=== PATIENT | female | born 1935 | race Caucasian/White ===

== ENCOUNTER 2016-12-23 08:28 | Outpatient (CLI) | payer MEDICARE ==
[2016-12-23 17:35] LABS: ALBUMIN/GLOBULIN RATIO 1.3 (1.0-2.2); BILIRUBIN,TOTAL 0.8 mg/dL (0.2-1.0); BUN - BLOOD UREA NITROGEN 18 mg/dL (6-20); CALCIUM 9.7 mg/dL (8.5-10.3); CARBON DIOXIDE - CO2 28 mmol/L (21-32); CHLORIDE 100 mmol/L (101-111); CHOLESTEROL 201 mg/dL; CREATININE 0.9 mg/dL (0.4-1.0); GFR - MDRD 60 (>89); GLUCOSE 87 mg/dL (70-100); HDL CHOLESTEROL 66 mg/dL; LDL/HDL RATIO 1.7 (<4.4); POTASSIUM 4.1 mmol/L (3.5-5.0); SODIUM 139 mmol/L (135-145); TOTAL PROTEIN 7.7 g/dL (6.7-8.2); TRIGLYCERIDES 104 mg/dL; VLDL CHOLESTEROL 21 mg/dL
[2016-12-23 17:58] LABS: BASOPHILS # (AUTO) 0.1 10^3/uL (0.0-0.1); BASOPHILS % (AUTO) 0.7 %; EOSINOPHILS # (AUTO) 0.1 10^3/uL (0.0-0.7); EOSINOPHILS % (AUTO) 1.8 %; HCT - HEMATOCRIT 40.9 % (37.0-47.0); HGB - HEMOGLOBIN 13.5 g/dL (12.0-16.0); LYMPHOCYTES # (AUTO) 1.8 10^3/uL (1.5-3.5); LYMPHOCYTES % (AUTO) 23.7 %; MEAN CORPUSCULAR HEMOGLOBIN 30.4 pg (27.0-31.0); MEAN CORPUSCULAR HGB CONC 32.9 g/dL (32.0-36.0); MEAN CORPUSCULAR VOLUME 92.4 fL (81.0-99.0); MEAN PLATELET VOLUME 10.3 fL (7.9-10.8); MONOCYTES # (AUTO) 0.6 10^3/uL (0.0-1.0); NEUTROPHILS # (AUTO) 4.9 10^3/uL (1.5-6.6); NEUTROPHILS % (AUTO) 65.8 %; NUCLEATED RED BLOOD CELLS AUTO 0.2 /100WBC; RED BLOOD COUNT 4.43 10^6/uL (4.20-5.40); RED CELL DISTRIBUTION WIDTH 12.9 % (12.0-15.0); UNCORRECTED WHITE BLOOD COUNT 7.4 x10^3/uL; WHITE BLOOD COUNT 7.4 x10^3/uL (4.8-10.8)
[2016-12-23 19:02] LABS: PLATELET ESTIMATE, MANUAL NORMAL (130-450,000) (NORMAL); PLATELET MORPHOLOGY PLATELET CLUMPING (NORMAL); WBC MORPHOLOGY (MULTIPLE) 1+ VACUOLATION (NORMAL)
== END 2016-12-23 23:59 | disposition home or self-care (01) ==
LOC: LAB.R 08:28
PROVIDERS: ATTEND Physician Assistant Medical
DX: Z00.00 Encounter for general adult medical examination without abnormal findings (principal); K21.9 Gastro-esophageal reflux disease without esophagitis; E78.2 Mixed hyperlipidemia; Z79.899 Other long term (current) drug therapy
CPT/HCPCS: 80053; 80061; 84443; 85025

== ENCOUNTER 2018-01-15 08:00 | Outpatient (CLI) | payer MEDICARE ==
[2018-01-15 12:48] LABS: BASOPHILS # (AUTO) 0.1 10^3/uL (0.0-0.1); BASOPHILS % (AUTO) 1.2 %; EOSINOPHILS # (AUTO) 0.2 10^3/uL (0.0-0.7); EOSINOPHILS % (AUTO) 2.9 %; HGB - HEMOGLOBIN 13.2 g/dL (12.0-16.0); LYMPHOCYTES # (AUTO) 1.7 10^3/uL (1.5-3.5); LYMPHOCYTES % (AUTO) 25.7 %; MEAN CORPUSCULAR HEMOGLOBIN 31.5 pg (27.0-31.0); MEAN CORPUSCULAR HGB CONC 33.3 g/dL (32.0-36.0); MEAN CORPUSCULAR VOLUME 94.5 fL (81.0-99.0); MEAN PLATELET VOLUME 9.3 fL (7.9-10.8); MONOCYTES # (AUTO) 0.6 10^3/uL (0.0-1.0); MONOCYTES % (AUTO) 8.3 %; NEUTROPHILS # (AUTO) 4.2 10^3/uL (1.5-6.6); NEUTROPHILS % (AUTO) 61.9 %; PLT - PLATELET COUNT 204 10^3/uL (130-450); RED CELL DISTRIBUTION WIDTH 12.6 % (12.0-15.0); WHITE BLOOD COUNT 6.8 x10^3/uL (4.8-10.8)
[2018-01-15 13:19] LABS: ALBUMIN 3.9 g/dL (3.2-5.5); ALBUMIN/GLOBULIN RATIO 1.2 (1.0-2.2); ALKALINE PHOSPHATASE 65 IU/L (42-121); ALT ALANINE AMINOTRANSFERASE 21 IU/L (10-60); AST ASPARTATE AMINOTRANSFERASE 27 IU/L (10-42); BILIRUBIN,TOTAL 1.2 mg/dL (0.2-1.0); BUN - BLOOD UREA NITROGEN 17 mg/dL (6-20); CALCIUM 9.6 mg/dL (8.5-10.3); CARBON DIOXIDE - CO2 30 mmol/L (21-32); CHLORIDE 102 mmol/L (101-111); CHOL/HDL RATIO 2.6 (<4.4); CHOLESTEROL 206 mg/dL; CREATININE 0.9 mg/dL (0.4-1.0); GFR - MDRD 60 (>89); GLUCOSE 90 mg/dL (70-100); HDL CHOLESTEROL 79 mg/dL; LDL CHOLESTEROL,CALCULATED 109 mg/dL; LDL/HDL RATIO 1.4 (<4.4); SODIUM 138 mmol/L (135-145); TOTAL PROTEIN 7.2 g/dL (6.7-8.2); VLDL CHOLESTEROL 18 mg/dL
== END 2018-01-15 08:01 | disposition home or self-care (01) ==
LOC: LAB.R 08:00
PROVIDERS: ATTEND Physician Assistant Medical
DX: Z79.899 Other long term (current) drug therapy (principal); K21.9 Gastro-esophageal reflux disease without esophagitis; M15.9 Polyosteoarthritis, unspecified; E78.2 Mixed hyperlipidemia
CPT/HCPCS: 80053; 80061; 83721; 84443; 85025

== ENCOUNTER 2019-04-29 09:20 | Outpatient (CLI) | payer MEDICARE ==
[2019-04-29 09:40] LABS: BASOPHILS # (AUTO) 0.1 10^3/uL (0.0-0.1); BASOPHILS % (AUTO) 1.2 %; EOSINOPHILS # (AUTO) 0.3 10^3/uL (0.0-0.7); EOSINOPHILS % (AUTO) 3.9 %; HGB - HEMOGLOBIN 13.1 g/dL (12.0-16.0); LYMPHOCYTES # (AUTO) 1.6 10^3/uL (1.5-3.5); LYMPHOCYTES % (AUTO) 25.3 %; MEAN CORPUSCULAR HEMOGLOBIN 31.5 pg (27.0-31.0); MEAN CORPUSCULAR HGB CONC 33.3 g/dL (32.0-36.0); MEAN CORPUSCULAR VOLUME 94.5 fL (81.0-99.0); MEAN PLATELET VOLUME 9.9 fL (7.9-10.8); MONOCYTES # (AUTO) 0.6 10^3/uL (0.0-1.0); MONOCYTES % (AUTO) 9.2 %; NEUTROPHILS # (AUTO) 3.9 10^3/uL (1.5-6.6); NEUTROPHILS % (AUTO) 60.1 %; PLT - PLATELET COUNT 208 10^3/uL (130-450); RED BLOOD COUNT 4.16 10^6/uL (4.20-5.40); RED CELL DISTRIBUTION WIDTH 11.9 % (12.0-15.0); WHITE BLOOD COUNT 6.5 x10^3/uL (4.8-10.8)
[2019-04-29 09:57] LABS: ALBUMIN 4.4 g/dL (3.2-5.5); ALBUMIN/GLOBULIN RATIO 1.3 (1.0-2.2); ALKALINE PHOSPHATASE 66 IU/L (42-121); ALT ALANINE AMINOTRANSFERASE 20 IU/L (10-60); AST ASPARTATE AMINOTRANSFERASE 27 IU/L (10-42); BILIRUBIN,TOTAL 1.3 mg/dL (0.2-1.0); BUN - BLOOD UREA NITROGEN 19 mg/dL (6-20); CALCIUM 9.8 mg/dL (8.5-10.3); CARBON DIOXIDE - CO2 29 mmol/L (21-32); CHLORIDE 103 mmol/L (101-111); CHOL/HDL RATIO 3.5 (<4.4); CHOLESTEROL 235 mg/dL; CREATININE 0.9 mg/dL (0.4-1.0); GFR - MDRD 59 (>89); GLUCOSE 99 mg/dL (70-100); HDL CHOLESTEROL 68 mg/dL; LDL CHOLESTEROL,CALCULATED 147 mg/dL; LDL/HDL RATIO 2.2 (<4.4); SODIUM 141 mmol/L (135-145); TOTAL PROTEIN 7.8 g/dL (6.7-8.2); VLDL CHOLESTEROL 20 mg/dL
== END 2019-04-29 09:21 | disposition home or self-care (01) ==
LOC: LAB 09:20
PROVIDERS: ATTEND Nurse Practitioner
DX: Z79.899 Other long term (current) drug therapy (principal); M85.80 Other specified disorders of bone density and structure, unspecified site; K21.9 Gastro-esophageal reflux disease without esophagitis; I45.6 Pre-excitation syndrome
CPT/HCPCS: 36415; 80053; 80061; 83721; 84443; 85025

== ENCOUNTER 2019-10-29 08:11 | Outpatient (CLI) | payer MEDICARE ==
[2019-10-29 08:36] LABS: ALBUMIN 4.6 g/dL (3.2-5.5); ALBUMIN/GLOBULIN RATIO 1.4 (1.0-2.2); BILIRUBIN,TOTAL 1.4 mg/dL (0.2-1.0); CALCIUM 9.7 mg/dL (8.5-10.3); CREATININE 0.9 mg/dL (0.4-1.0); TOTAL PROTEIN 7.8 g/dL (6.7-8.2)
== END 2019-10-29 08:12 | disposition home or self-care (01) ==
LOC: LAB 08:11
PROVIDERS: ATTEND Nurse Practitioner
DX: E78.5 Hyperlipidemia, unspecified (principal); Z79.899 Other long term (current) drug therapy
CPT/HCPCS: 36415; 80053

== ENCOUNTER 2020-05-30 08:00 | Outpatient (CLI) | payer MEDICARE ==
[2020-05-30 18:11] LABS: BASOPHILS # (AUTO) 0.1 10^3/uL (0.0-0.1); BASOPHILS % (AUTO) 1.1 %; EOSINOPHILS # (AUTO) 0.1 10^3/uL (0.0-0.7); EOSINOPHILS % (AUTO) 1.8 %; HGB - HEMOGLOBIN 12.6 g/dL (12.0-16.0); LYMPHOCYTES # (AUTO) 1.8 10^3/uL (1.5-3.5); MEAN CORPUSCULAR HEMOGLOBIN 31.3 pg (27.0-31.0); MEAN CORPUSCULAR HGB CONC 33.1 g/dL (32.0-36.0); MEAN CORPUSCULAR VOLUME 94.5 fL (81.0-99.0); MEAN PLATELET VOLUME 11.4 fL (7.9-10.8); MONOCYTES # (AUTO) 0.4 10^3/uL (0.0-1.0); NEUTROPHILS # (AUTO) 3.1 10^3/uL (1.5-6.6); NEUTROPHILS % (AUTO) 56.9 %; PLT - PLATELET COUNT 188 10^3/uL (130-450); RED BLOOD COUNT 4.03 10^6/uL (4.20-5.40); RED CELL DISTRIBUTION WIDTH 12.1 % (12.0-15.0); WHITE BLOOD COUNT 5.5 x10^3/uL (4.8-10.8)
[2020-05-30 19:39] LABS: ALBUMIN 4.5 g/dL (3.2-5.5); ALBUMIN/GLOBULIN RATIO 1.4 (1.0-2.2); ALKALINE PHOSPHATASE 68 IU/L (42-121); ALT ALANINE AMINOTRANSFERASE 24 IU/L (10-60); AST ASPARTATE AMINOTRANSFERASE 28 IU/L (10-42); BILIRUBIN,TOTAL 1.6 mg/dL (0.2-1.0); BUN - BLOOD UREA NITROGEN 15 mg/dL (6-20); CALCIUM 9.7 mg/dL (8.5-10.3); CARBON DIOXIDE - CO2 29 mmol/L (21-32); CHLORIDE 101 mmol/L (101-111); CHOL/HDL RATIO 2.1 (<4.4); CHOLESTEROL 152 mg/dL; CREATININE 0.9 mg/dL (0.4-1.0); GLUCOSE 82 mg/dL (70-100); HDL CHOLESTEROL 74 mg/dL; LDL CHOLESTEROL,CALCULATED 61 mg/dL; LDL/HDL RATIO 0.8 (<4.4); SODIUM 140 mmol/L (135-145); TOTAL PROTEIN 7.8 g/dL (6.7-8.2); VLDL CHOLESTEROL 17 mg/dL
== END 2020-05-30 23:59 | disposition home or self-care (01) ==
LOC: LAB.WCP 08:00
PROVIDERS: ATTEND Family Medicine
DX: E78.5 Hyperlipidemia, unspecified (principal); M85.80 Other specified disorders of bone density and structure, unspecified site
CPT/HCPCS: 36415; 80053; 80061; 83721; 85025

== ENCOUNTER 2021-05-29 09:29 | Outpatient (CLI) | payer MEDICARE ==
[2021-05-29 13:18] LABS: ALBUMIN 4.5 g/dL (3.2-5.5); ALBUMIN/GLOBULIN RATIO 1.6 (1.0-2.2); ALKALINE PHOSPHATASE 73 IU/L (42-121); ALT ALANINE AMINOTRANSFERASE 23 IU/L (10-60); AST ASPARTATE AMINOTRANSFERASE 28 IU/L (10-42); BILIRUBIN,TOTAL 1.7 mg/dL (0.2-1.0); BUN - BLOOD UREA NITROGEN 16 mg/dL (6-20); CALCIUM 9.8 mg/dL (8.5-10.3); CARBON DIOXIDE - CO2 28 mmol/L (21-32); CHLORIDE 101 mmol/L (101-111); CHOL/HDL RATIO 2.1 (<4.4); CHOLESTEROL 147 mg/dL; CREATININE 0.9 mg/dL (0.4-1.0); GFR - MDRD 59 (>89); GLUCOSE 96 mg/dL (70-100); HDL CHOLESTEROL 69 mg/dL; LDL CHOLESTEROL,CALCULATED 58 mg/dL; LDL/HDL RATIO 0.8 (<4.4); SODIUM 139 mmol/L (135-145); TOTAL PROTEIN 7.4 g/dL (6.7-8.2); TRIGLYCERIDES 101 mg/dL; VLDL CHOLESTEROL 20 mg/dL
[2021-05-29 13:24] LABS: BASOPHILS # (AUTO) 0.1 10^3/uL (0.0-0.1); BASOPHILS % (AUTO) 1.4 %; EOSINOPHILS # (AUTO) 0.2 10^3/uL (0.0-0.7); HCT - HEMATOCRIT 38.1 % (37.0-47.0); HGB - HEMOGLOBIN 12.3 g/dL (12.0-16.0); LYMPHOCYTES # (AUTO) 1.6 10^3/uL (1.5-3.5); LYMPHOCYTES % (AUTO) 27.5 %; MEAN CORPUSCULAR HGB CONC 32.3 g/dL (32.0-36.0); MONOCYTES # (AUTO) 0.5 10^3/uL (0.0-1.0); MONOCYTES % (AUTO) 8.9 %; NEUTROPHILS # (AUTO) 3.3 10^3/uL (1.5-6.6); NEUTROPHILS % (AUTO) 58.8 %; PLT - PLATELET COUNT 216 10^3/uL (130-450); RED BLOOD COUNT 3.97 10^6/uL (4.20-5.40); WHITE BLOOD COUNT 5.6 x10^3/uL (4.8-10.8)
== END 2021-05-29 23:59 | disposition home or self-care (01) ==
LOC: LAB.WCP 09:29
PROVIDERS: ATTEND Family Medicine
DX: E78.5 Hyperlipidemia, unspecified (principal); Z79.899 Other long term (current) drug therapy
CPT/HCPCS: 36415; 80053; 80061; 83721; 85025

== ENCOUNTER 2021-10-02 15:16 | Outpatient (CLI) | payer MEDICARE ==
--- NOTE | 2021-10-03 02:22 | DEXA Report ---
PROCEDURE: Dexa Spine and/or Hip INDICATIONS: POST MENOPAUSAL TECHNIQUE: Dual energy x-ray absorptiometry (DXA) was performed on a Ayi Laile System. Regions measur ed are the AP Spine, femoral neck, and if needed forearm. COMPARISON: None. FINDINGS: Lumbar Spine: Bone Mineral Density L1-L4: 1.109 g/cm/cm,T score -0.6, within normal limits . L4: 1.013 g/cm/cm, T score -1.6, osteopenia. Left Hip: Bone Mineral Density 0.893 g/cm/cm,T score -0.9, lower limits of normal. Left Femoral Neck: Bone Mineral Density 0.811 g/cm/cm, T score -1.6, osteopenia. (T score greater or equal to -1.0: NORMAL) (T score from -1.1 to -2.4: OSTEOPENIA) (T score less than or equal to -2.5 to: OSTEOPOROSIS) Impression: 1. Osteopenia demonstrated in the left femoral neck and at L4. Patients with diagnosis of osteoporosis or osteopenia should have regular bone mineral density assess ment. For those eligible for Medicare, routine testing is allowed once every 2 years. Testing frequ ency can be increased for patients who have rapidly progressing disease or for those who are receivin g medical therapy to restore bone mass. Reviewed by: Michael Bangura MD on 10/03/2021 2:20 AM PDT Approved by: Michael Bangura MD on 10/03/2021 2:20 AM PDT Station ID: [id number]
== END 2021-10-02 15:17 | disposition home or self-care (01) ==
LOC: DI 15:16
PROVIDERS: ATTEND Nurse Practitioner Family
DX: Z78.0 Asymptomatic menopausal state (principal); M85.88 Other specified disorders of bone density and structure, other site

== ENCOUNTER 2022-12-08 08:05 | Outpatient (CLI) | payer MEDICARE | END 2022-12-08 23:59 | disposition critical access hospital (66) | LOC: EMS 08:05 | DX: R42 Dizziness and giddiness (principal); R47.1 Dysarthria and anarthria | CPT/HCPCS: A0425; A0429 ==

== ENCOUNTER 2022-12-08 08:21 | Observation (INO) | payer MEDICARE ==
--- NOTE | 2022-12-08 08:28 | ED Physician Documentation ---
PD HPI FOCAL NEURO - Stated complaint Stated Complaint: Stroke - History obtained from History obtained from: Patient, EMS - Additional information Additional information: 87-year-old woman with history of TIA went to bed last night around 10 PM in her usual state of health. This morning she woke up around 7 with dizziness "I feel like I am falling." It is not associated with headache but she is queasy with it. She has difficulty speaking with it. PD PAST MEDICAL HISTORY - Past Medical History Cardiovascular: Other - Present Medications Home Medications: Ambulatory Orders Medication Instructions Recorded Confirmed Aspirin 81 mg PO DAILY 09/08/19 09/08/19 Calcium Carbonate [Calcium] 600 mg PO DAILY 09/08/19 09/08/19 Cholecalciferol (Vitamin D3) 800 unit PO DAILY 09/08/19 09/08/19 [Vitamin D3] Cyanocobalamin (Vitamin B-12) 2,500 mg ORAL DAILY 09/08/19 09/08/19 [Vitamin B-12] Glucosamine Sulfate 2,000 mg PO DAILY 09/08/19 09/08/19 Multivitamin [Multiple Vitamins] 1 tab PO DAILY 09/08/19 09/08/19 Omeprazole 20 mg PO DAILY 09/08/19 09/08/19 Propranolol [Inderal] 40 mg PO DAILY 09/08/19 09/08/19 Turmeric/Turmeric Root Extract 500 mg PO DAILY 09/08/19 09/08/19 [Turmeric 500 mg Capsule] flaxseed oiL [Flaxseed Oil] 1,000 mg PO DAILY 09/08/19 09/08/19 - Allergies Allergies/Adverse Reactions: Allergies Allergy/AdvReac Type Severity Reaction Status Date / Time No Known Drug Allergies Allergy Verified 02/28/22 15:56 - Social History Does the pt smoke?: No Smoking Status: Never smoker PD ED PE NORMAL - Vitals Vital signs reviewed: Yes - General General: Alert and oriented X 3, No acute distress - HEENT HEENT: PERRL, EOMI - Neck Neck: Supple, no meningeal sign, No bony TTP - Cardiac Cardiac: RRR, No murmur - Respiratory Respiratory: No respiratory distress, Clear bilaterally - Abdomen Abdomen: Non tender - Neuro Neuro: Alert and oriented X 3, No motor deficit, No sensory deficit, Normal speech Eye Opening: Spontaneous Motor: Obeys Commands Verbal: Oriented GCS Score: 15 - Psych Psych: Normal mood, Normal affect NIHSS - Time Time: 08:28 - Level of Consciousness Level of consciousness: (0) Alert, Keenly responsive LOC Questions: (0) Answers both Q's correct LOC Commands: (0) Performs both correctly - Gaze Best Gaze: (0) Normal - Visual Visual: (0) No loss - Facial Palsy Facial Palsy: (0) Normal, symmetrical movement - Motor Arms (both separate) Motor Arm (right): (0) No drift Motor Arm (left): (0) No drift - Motor Legs (both separate) Motor Leg (right): (0) No drift Motor Leg (left): (0) No drift - Limb Ataxia Limb Ataxia: (0) Absent - Sensory Sensory: (0) Normal - Best Language Best Language: (1) [id number] - Dysarthria Dysarthria: (0) Normal - Extinction and Inattention (formally neg Extinction and inattention: (0) No abnormality - Total Score/Results Total Score/Result: 1 Results - Vitals Vitals: Vital Signs - 24 hr 12/08/22 12/08/22 08:24 09:12 Temperature 36.4 C L Heart Rate 52 L 49 L Respiratory 16 20 Rate Blood Pressure 174/68 H 116/86 H O2 Saturation 99 95 Oxygen O2 Source Room air - EKG (time done) 0841 EKG releavant findings:: EKG personally interpreted by author of this note. Relevant findings are: Rate: Rate (enter#) (52) Rhythm: NSR [place]: Normal Intervals: Prolonged VT, Other (LAFB) QRS: LVH Ischemia: Normal ST segments - Labs Labs: Laboratory Tests 12/08/22 12/08/22 12/08/22 08:50 08:50 08:50 WBC 4.8 RBC 4.06 L Hgb 12.7 Hct 38.3 MCV 94.3 MCH 31.3 H MCHC 33.2 RDW 11.9 L Plt Count 173 MPV 10.3 Neut # (Auto) 3.0 Lymph # (Auto) 1.2 L [place] # (Auto) 0.4 Eos # (Auto) 0.1 Baso # (Auto) 0.1 Absolute Nucleated RBC 0.00 Nucleated RBC % 0.0 PT 11.6 INR 1.0 Sodium 137 Potassium 3.7 Chloride 102 Carbon Dioxide 29 Anion Gap 6.0 BUN 14 Creatinine 0.7 Estimated GFR (MDRD) 79 L Glucose 103 H Calcium 9.0 Total Bilirubin 1.7 H AST 29 ALT 20 Alkaline Phosphatase 74 Total Protein 7.2 Albumin 4.1 Globulin 3.1 Albumin/Globulin Ratio 1.3 Lipase 70 H - Rads (name of study) CT Head - NAD, atrophy and chronic ischemic chgs Relevant Findings:: Final report received, EMP independent interpretation of test CTA of the head is without large vessel occlusion. Relevant Findings:: Final report received, EMP independent interpretation of test CT angiography of the neck shows some atherosclerosis of the carotid bulbs, otherwise unremarkable. Relevant Findings:: Final report received, EMP independent interpretation of test PD Medical Decision Making - ED course ED course: 87-year-old woman with strokelike symptoms, but fairly mild symptoms and findings with nothing lateralizing. The telestroke physician was consulted and also saw the patient. Given the unclear time of onset and mild disability he does not recommend tPA. He does recommend observation with MRI and aspirin. Spoke with Dr. Penaloza for same at 9 AM. Departure - Departure Disposition: ED Place in Observation Clinical Impression: Cerebrovascular accident (CVA) Qualifiers: CVA mechanism: unspecified Qualified Code(s): I63.9 - Cerebral infarction, unspecified Condition: Serious
[2022-12-08 08:56] LABS: BASOPHILS # (AUTO) 0.1 10^3/uL (0.0-0.1); BASOPHILS % (AUTO) 1.3 %; EOSINOPHILS # (AUTO) 0.1 10^3/uL (0.0-0.7); EOSINOPHILS % (AUTO) 2.9 %; HCT - HEMATOCRIT 38.3 % (37.0-47.0); HGB - HEMOGLOBIN 12.7 g/dL (12.0-16.0); LYMPHOCYTES # (AUTO) 1.2 10^3/uL (1.5-3.5); MEAN CORPUSCULAR HEMOGLOBIN 31.3 pg (27.0-31.0); MEAN CORPUSCULAR HGB CONC 33.2 g/dL (32.0-36.0); MEAN CORPUSCULAR VOLUME 94.3 fL (81.0-99.0); MEAN PLATELET VOLUME 10.3 fL (7.9-10.8); MONOCYTES # (AUTO) 0.4 10^3/uL (0.0-1.0); MONOCYTES % (AUTO) 8.6 %; PLT - PLATELET COUNT 173 10^3/uL (130-450); RED BLOOD COUNT 4.06 10^6/uL (4.20-5.40); RED CELL DISTRIBUTION WIDTH 11.9 % (12.0-15.0); WHITE BLOOD COUNT 4.8 x10^3/uL (4.8-10.8)
[2022-12-08] MEDS ORDERED: ASPIRIN CHEW 81 MG TABLET PO STA (09:01)
[2022-12-08] MEDS ORDERED: SODIUM CHLORIDE 0.9% 1,000 ML IV STA (09:01)
[2022-12-08 09:02] LABS: PT - PROTHROMBIN TIME 11.6 secs (9.9-12.6)
[2022-12-08 09:06] LABS: ALBUMIN 4.1 g/dL (3.2-5.5); ALBUMIN/GLOBULIN RATIO 1.3 (1.0-2.2); BILIRUBIN,TOTAL 1.7 mg/dL (0.2-1.0); CREATININE 0.7 mg/dL (0.4-1.0); POTASSIUM 3.7 mmol/L (3.5-5.0); TOTAL PROTEIN 7.2 g/dL (6.7-8.2)
--- NOTE | 2022-12-08 09:07 | CT Report ---
PROCEDURE: Head W/O Stroke Protocol INDICATIONS: Neuro deficit, acute, stroke suspected TECHNIQUE: Noncontrast 4.5 mm thick angled axial sections acquired from the foramen magnum to the vertex, with c oronal reformats. For radiation dose reduction, the following was used: automated exposure control, adjustment of mA and/or kV according to patient size. COMPARISON: None. FINDINGS: Image quality: Excellent. CSF spaces: Basal cisterns are patent. No extra-axial fluid collections. Ventricles are normal in size and shape. Bilateral hygromas larger on the left are unchanged compared to remote CT on . Brain: No midline shift. No intracranial masses or hemorrhage. Romero-white matter interface is n ormal. Skull and face: Calvarium and visualized facial bones are intact, without suspicious lesions. Sinuses: Visualized sinuses and mastoids are clear. IMPRESSION: 1. No acute intracranial abnormality. 2. Microvascular ischemic disease and age-related cerebral volume loss. Findings were discussed with the emergency department at 9:00 AM on 12/08/2022. This study fulfills neurological imaging criteria for inclusion or exclusion of acute stroke therapie s based on available published neurological imaging guidelines. Reviewed by: Nikhil Ocampo on 12/08/2022 9:05 AM PDT Approved by: Nikhil Ocampo on 12/08/2022 9:05 AM PDT Station ID: [id number]
--- NOTE | 2022-12-08 09:10 | CT Report ---
PROCEDURE: ANGIO HEAD W/WO INDICATIONS: CVA sx CONTRAST: 80 omni 350 TECHNIQUE: Precontrast 4.5 mm thick angled axial sections acquired from the foramen magnum to the vertex. Afte r the administration of intravenous contrast, 1 mm thick sections acquired through the [place] of [place] is. Postcontrast 4.5 mm thick sections then re-acquired from the foramen magnum to the vertex. 3-di mensional futqyfl-wcgjuyjsu-edfpvnfvld (MIP) and/or volume rendering reformats were acquired of the c entral intracranial vasculature. For radiation dose reduction, the following was used: automated ex posure control, adjustment of mA and/or kV according to patient size. COMPARISON: None FINDINGS: Image quality: Excellent. Anterior circulation: Intracranial internal carotid arteries are normal in size and flow. The flow within the paired anterior cerebral arteries is normal and symmetric. The flow within the middle cer ebral arteries is normal and symmetric. The anterior communicating artery is seen. No aneurysms are seen. Posterior circulation: Visualized portions of the vertebral arteries demonstrate normal caliber, and join to form a normal appearing basilar artery. Flow within the posterior cerebral arteries is norm al and symmetric. No aneurysms are seen. CSF spaces: Ventricles are normal in size and shape. Basal cisterns are patent. No extra-axial flu id collections. Brain: No midline shift. No intracranial bleeds or masses. Romero-white matter interface appears int act. Skull and face: Calvarium and facial bones appear intact, without suspicious lesions. Sinuses: Visualized sinuses and mastoids are clear. IMPRESSION: 1. No acute intracranial abnormality. 2. Normal CTA head. No large vessel occlusion. Reviewed by: Nikhil Ocampo on 12/08/2022 9:08 AM PDT Approved by: Nikhil Ocampo on 12/08/2022 9:08 AM PDT Station ID: [id number]
--- NOTE | 2022-12-08 09:17 | CT Report ---
PROCEDURE: ANGIO NECK W INDICATIONS: CVA sx CONTRAST: 80 omni 350 TECHNIQUE: After the administration of intravenous contrast, 1.5 mm axial sections acquired from the aortic arch to the [place] of [place]. Coronal 3-D maximum intensity projection (MIP) and/or volume rendering ref ormats were then performed. For radiation dose reduction, the following was used: automated exposur e control, adjustment of mA and/or kV according to patient size. COMPARISON: None. FINDINGS: Image quality: Excellent. Carotid system: The great vessels demonstrate a conventional anatomy as they arise from the aortic a rch. The origins of the common carotid arteries appear patent. The common carotid arteries demonstr ate normal calibers and courses. The bifurcation regions appear normal bilaterally. The internal ca rotid arteries demonstrate normal caliber and course. Posterior circulation: The origins of the vertebral arteries appear patent. The more superior porti ons of the vertebral arteries demonstrate normal course and caliber. They join to form a normal appe aring basilar artery. Soft tissues: Visualized neck soft tissues demonstrate no suspicious abnormalities. The thyroid is normal in size and there are no incidental findings. Bones: No suspicious bony lesions. Visualized cervical spine appears normally aligned. Multilevel degenerative changes. Degenerative disc disease most severe at C5-6. IMPRESSION: 1. No acute abnormality of the neck. 2. Atherosclerotic calcifications of the bulbs, otherwise normal CTA of the neck The estimate of stenosis included in the report of the imaging study was calculated using the NASCET method Reviewed by: Nikhil Ocampo on 12/08/2022 9:16 AM PDT Approved by: Nikhil Ocampo on 12/08/2022 9:16 AM PDT Station ID: [id number]
[2022-12-08] MEDS ORDERED: ONDANSETRON 4 MG/2 ML VIAL IVP PRN (10:22)
[2022-12-08] MEDS ORDERED: ACETAMINOPHEN 325 MG TABLET PO PRN (10:22)
[2022-12-08] MEDS ORDERED: SODIUM CHLORIDE FLUSH 0.9% 10 ML SYRINGE IVP PRN (10:22)
--- NOTE | 2022-12-08 10:36 | HISTORY & PHYSICAL EXAMINATION ---
Chief Complaint - Chief Complaint Chief Complaint: Dizzy and abnormal speech History of Present Illness - Admitted From Admitted From:: ED - History Obtained From History obtained from: ED provider and the patient - History of Present Illness HPI Comment/Other: This is an 87-year-old female who lives alone, her several years ago, with a history of TIA 3 years ago for which she is on baby aspirin daily. Yesterday she was active, mowed the lawn on a rifing mower, and did her usual in-home aerobics, went to bed at 10 PM. She awoke feeling dizzy as if she was falling and had dysarthria and word finding difficulty. She called an ambulance. She presented to the ER and still had the symptoms. A head CT and CTA head and neck were negative, which were unremarkable except for atrophy consistent with her age. She had a telestroke consultation done and the Neurologist felt that because of her advanced age, mild symptoms and unknown onset of symptoms, no tPA was indicated. Neurologist recommended she be placed in Observation and have evaluation and treatment. I discussed her CODE BLUE wishes with her and, she first answered that she has never thought about it. Then she and I discussed how her had and that he wanted a natural and she was the one to make that decision, which I now asked her to make for herself. She quickly stated she wanted nature to let its course "since she is 87", therefore she will be a DNR/DNI. 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 She is compliant with her medications. [place] still [place] She has 3 children who live in this state. - Substance History Use: Uses substance without health or social issues: NONE Meds/Allgy - Home Medications Home Medications: Ambulatory Orders Medication Instructions Recorded Confirmed Aspirin 81 mg PO DAILY 09/08/19 12/08/22 Calcium Carbonate [Calcium] 600 mg PO DAILY 09/08/19 12/08/22 Cholecalciferol (Vitamin D3) 800 unit PO DAILY 09/08/19 12/08/22 [Vitamin D3] Cyanocobalamin (Vitamin B-12) 2,500 mg ORAL DAILY 09/08/19 12/08/22 [Vitamin B-12] Glucosamine Sulfate 2,000 mg PO DAILY 09/08/19 12/08/22 Multivitamin [Multiple Vitamins] 1 tab PO DAILY 09/08/19 12/08/22 Propranolol [Inderal] 10 mg PO BID 09/08/19 12/08/22 Turmeric/Turmeric Root Extract 500 mg PO DAILY 09/08/19 12/08/22 [Turmeric 500 mg Capsule] flaxseed oiL [Flaxseed Oil] 1,000 mg PO DAILY 09/08/19 12/08/22 Atorvastatin [Lipitor] 10 mg PO DAILY 12/08/22 12/08/22 Famotidine [Acid-Pep] 20 mg PO DAILY 12/08/22 12/08/22 - Allergies Allergies/Adverse Reactions: Allergies Allergy/AdvReac Type Severity Reaction Status Date / Time No Known Drug Allergies Allergy Verified 02/28/22 15:56 Review of Systems - Neurological Neurological: reports: Memory problems, Other (Slow speech and word finding difficulty. She says the word finding difficulty has been there for years) - All Other Systems All Other Systems: reports: Reviewed and negative Exam - Vital Signs Vital Signs: Vital Signs x48h Temp Pulse Resp BP Pulse Ox 12/08/22 09:32 53 L 16 116/86 H 99 12/08/22 09:12 49 L 20 116/86 H 95 12/08/22 08:24 36.4 C L 52 L 16 174/68 H 99 - Physical Exam General Appearance: positive: No acute distress, Alert Eyes Bilateral: positive: Normal inspection, EOMI ENT: positive: ENT inspection nml, No signs of dehydration Neck: positive: Nml inspection, No JVD Respiratory: positive: No respiratory distress, Breath sounds nml Cardiovascular: positive: Regular rate & rhythm, No murmur Abdomen: positive: Non-tender, Nml bowel sounds, No distention Skin: positive: Warm, Dry Extremities: positive: Non-tender, No pedal edema Neurologic/Psychiatric: positive: Oriented x3, Other (Speech is slow and with short sentences. It takes her a long time to answer question. There is obvious word finding difficulty. She has no slurring.) Conclusion/Plan - Problem List (1) Stroke-like symptoms Conclusion/Plan: In reviewing her chart and EMR, she had gibberish speech and underwent TIA W/U with carotid Dopplers 3 years ago. The carotid Doppler showed less than 50% bilateral stenosis. There is no Echo on record done here. The patient has been on daily baby aspirin since that TIA. Patient had a telestroke evaluation done in our ER after the CT result came back negative. The neurologist recommended that because of her advanced age, mild symptoms and unknown onset, not to use tPA Plan: I will place the patient in Observation status. Swallow screen by nursing before starting a diet. Monitor on telemetry to watch for A-fib Neurochecks every 4 hours Continue aspirin and Neuro financial services consultant recommended adding Plavix if a stroke is seen on MRI Obtain brain MRI (today is Friday we do not have that service available until tomorrow). Obtain Echo with bubble study (today is Friday and we have no drain technician here until Friday). We will order PT, OT and Speech/linguistics evals (however today is Friday and we have no PT, OT or ST here until tomorrow). (2) Hyperlipidemia Conclusion/Plan: The patient takes Atorvastatin Plan: For now I will continue with her usual home Atorvastatin dose I will check her fasting lipid panel and treat per guidelines, if meds need to be changed - Lab Results Fish Bones: 12/08/22 08:50 12/08/22 08:50 - Diagnostic Imaging Results Diagnostic Imaging Results: positive: Final report reviewed
--- NOTE | 2022-12-08 11:36 | PHARMACY PROGRESS NOTE ---
- Best Possible Medication History Admit Date and Time: 12/08/22 1022 Processed by: Nursing Medication History completed: Yes Secondary Source(s): Insurance records Med list updated by PRIMARY CARE NURSE PRACTITIONER As the person ultimately responsible for medication therapy, providers are able to order a medication from an existing home medication list in [facility] via the "Reconcile Routine" prior to Confirmation of that medication by administrative support assistant. Such practice is discouraged except when the physician, in their clinical judgment, deems that a medical need exists for a medication without regard to previous use.
[2022-12-08] MEDS: SODIUM CHLORIDE FLUSH 0.9% 10 ML SYRINGE IVP SCH ×2 (16:01→20:04)
[2022-12-08] MEDS: ATORVASTATIN 10 MG TABLET PO SCH (20:04)
[2022-12-08] MEDS ORDERED: PROPRANOLOL 10 MG TABLET PO SCH (21:00)
[2022-12-09 06:06] LABS: CHOL/HDL RATIO 1.9 (<4.4); CHOLESTEROL 137 mg/dL; HDL CHOLESTEROL 74 mg/dL; LDL CHOLESTEROL,CALCULATED 53 mg/dL; LDL/HDL RATIO 0.7 (<4.4); TRIGLYCERIDES 50 mg/dL; VLDL CHOLESTEROL 10 mg/dL
[2022-12-09] MEDS: FAMOTIDINE 20 MG TABLET PO SCH (09:05)
[2022-12-09] MEDS: ASPIRIN CHEW 81 MG TABLET PO SCH (09:05)
[2022-12-09] MEDS: SODIUM CHLORIDE FLUSH 0.9% 10 ML SYRINGE IVP SCH ×2 (09:05→18:15)
[2022-12-09] MEDS: MULTIVITAMIN TABLET PO SCH (09:05)
[2022-12-09] MEDS: CALCIUM CARB (OYSTER SHELL) 500 MG TABLET PO SCH (09:05)
--- NOTE | 2022-12-09 12:25 | MRI Report ---
PROCEDURE: BRAIN WO INDICATIONS: CVA TECHNIQUE: Noncontrast axial T1 spin echo, axial T2 fast spin echo, sagittal and axial FLAIR, coronal T2 fast sp in echo, axial gradient echo, axial diffusion and ADC through the brain. COMPARISON: CTA of head and neck dated 12/08/2022, CT head dated 12/08/2022. FINDINGS: Image quality: Excellent. CSF Spaces: Basal cisterns are patent. No extra-axial fluid collections. Ventricles are normal in size and shape. Brain: No intracranial masses or hemorrhage. Romero/white matter interface is normal. Brainstem appe ars normal. Diffusion-weighted images demonstrate no acute ischemic insult. Age-related volume loss and moderate to severe small vessel ischemic change. Io chronic ischemic insults. Normal intravascu lar flow voids are present. Skull and face: Calvarium has normal marrow signal. Orbits appear normal. Sinuses: Sinuses and mastoids are clear. IMPRESSION: 1. Age-related volume loss and moderate to severe small vessel ischemic change. 2. No evidence of acute stroke, hemorrhage, or mass. Reviewed by: Raghavendra Brewster MD on 12/09/2022 12:24 PM PDT Approved by: Raghavendra Brewster MD on 12/09/2022 12:24 PM PDT Station ID: [id number]
--- NOTE | 2022-12-09 12:33 | PROVIDER PROGRESS NOTE ---
Assessment/Plan - Current Meds Current Meds: Current Medications Generic Name Dose Route Start Last Admin Trade Name Michael PRN Reason Stop Dose Admin Aspirin 81 mg 12/09/22 09:00 12/09/22 09:05 Aspirin Chew 81 Mg Tablet PO 81 mg DAILY ASPEN Administration Atorvastatin Calcium 10 mg 12/08/22 21:00 12/08/22 20:04 Atorvastatin 10 Mg Tablet PO 10 mg QPM ASPEN Administration Calcium Carbonate/Glycine 500 mg 12/09/22 09:00 12/09/22 09:05 Calcium Carb (Oyster Shell) 500 Mg Tablet PO 500 mg DAILY ASPEN Administration Famotidine 20 mg 12/09/22 09:00 12/09/22 09:05 Famotidine 20 Mg Tablet PO 20 mg DAILY ASPEN Administration Multivitamins 1 tab 12/09/22 08:00 12/09/22 09:05 Multivitamin Tablet PO 1 tab DAILYWM ASPEN Administration Sodium Chloride 10 ml 12/08/22 17:00 12/09/22 09:05 Sodium Chloride Flush 0.9% 10 Ml Syringe IVP 10 ml 0100,0900,1700 [facility] Administration - Lab Result Fish Bone Diagrams: 12/08/22 08:50 12/08/22 08:50 - Additional Planning My Orders: My Active Orders 12/08/22 17:00 Sodium Chloride Flush 0.9% [Normal Saline Flush 0.9%] 10 ml IVP 0100,0900,1700 12/08/22 21:00 Atorvastatin [Lipitor] 10 mg PO QPM 12/09/22 08:00 Multivitamin [Theragran] 1 tab PO DAILYWM 12/09/22 09:00 Aspirin Chewable [[place] Aspirin] 81 mg PO DAILY Calcium Carb (Oyster Shell) [[place]-500] 500 mg PO DAILY Famotidine [Pepcid] 20 mg PO DAILY 12/10/22 07:00 Echo Complete w/Bubble Study [ECHO] Routine Objective Vital Signs: Vital Signs - 24 hr 12/08/22 12/08/22 12/08/22 12:41 15:48 20:12 Temperature 36.5 C 36.6 C 36.4 C L Heart Rate [ 54 L 49 L 57 L Brachial] Respiratory 16 16 20 Rate Blood Pressure 149/48 H 142/53 H 120/58 L [Right Brachial artery] O2 Saturation 98 97 96 12/09/22 12/09/22 01:36 08:26 Temperature 36.6 C 36.5 C Heart Rate [ 62 54 L Brachial] Respiratory 20 18 Rate Blood Pressure 132/76 H 136/53 H [Right Brachial artery] O2 Saturation 97 95 Oxygen O2 Source Room air I&O (Last 24 Hrs): Intake and Output Totals x24h 12/07/22 12/08/22 12/09/22 23:59 23:59 23:59 Intake Total 1758 480 Balance 1758 480 - Results Results: Laboratory Results WBC 4.8 x10^3/uL (4.8-10.8) 12/08/22 08:50 RBC 4.06 10^6/uL (4.20-5.40) L 12/08/22 08:50 Hgb 12.7 g/dL (12.0-16.0) 12/08/22 08:50 Hct 38.3 % (37.0-47.0) 12/08/22 08:50 MCV 94.3 fL (81.0-99.0) 12/08/22 08:50 MCH 31.3 pg (27.0-31.0) H 12/08/22 08:50 MCHC 33.2 g/dL (32.0-36.0) 12/08/22 08:50 RDW 11.9 % (12.0-15.0) L 12/08/22 08:50 Plt Count 173 10^3/uL (130-450) 12/08/22 08:50 MPV 10.3 fL (7.9-10.8) 12/08/22 08:50 Neut # (Auto) 3.0 10^3/uL (1.5-6.6) 12/08/22 08:50 Lymph # (Auto) 1.2 10^3/uL (1.5-3.5) L 12/08/22 08:50 [place] # (Auto) 0.4 10^3/uL (0.0-1.0) 12/08/22 08:50 Eos # (Auto) 0.1 10^3/uL (0.0-0.7) 12/08/22 08:50 Baso # (Auto) 0.1 10^3/uL (0.0-0.1) 12/08/22 08:50 Absolute Nucleated RBC 0.00 x10^3/uL 12/08/22 08:50 Nucleated RBC % 0.0 /100WBC 12/08/22 08:50 PT 11.6 secs (9.9-12.6) 12/08/22 08:50 INR 1.0 (0.8-1.2) 12/08/22 08:50 Sodium 137 mmol/L (135-145) 12/08/22 08:50 Potassium 3.7 mmol/L (3.5-5.0) 12/08/22 08:50 Chloride 102 mmol/L (101-111) 12/08/22 08:50 Carbon Dioxide 29 mmol/L (21-32) 12/08/22 08:50 Anion Gap 6.0 (6-13) 12/08/22 08:50 BUN 14 mg/dL (6-20) 12/08/22 08:50 Creatinine 0.7 mg/dL (0.4-1.0) 12/08/22 08:50 Estimated GFR (MDRD) 79 (>89) L 12/08/22 08:50 Glucose 103 mg/dL (70-100) H 12/08/22 08:50 Calcium 9.0 mg/dL (8.5-10.3) 12/08/22 08:50 Total Bilirubin 1.7 mg/dL (0.2-1.0) H 12/08/22 08:50 AST 29 IU/L (10-42) 12/08/22 08:50 ALT 20 IU/L (10-60) 12/08/22 08:50 Alkaline Phosphatase 74 IU/L (42-121) 12/08/22 08:50 Total Protein 7.2 g/dL (6.7-8.2) 12/08/22 08:50 Albumin 4.1 g/dL (3.2-5.5) 12/08/22 08:50 Globulin 3.1 g/dL (2.1-4.2) 12/08/22 08:50 Albumin/Globulin Ratio 1.3 (1.0-2.2) 12/08/22 08:50 Triglycerides 50 mg/dL (-149) 12/09/22 05:27 Cholesterol 137 mg/dL (-199) 12/09/22 05:27 LDL Cholesterol, Calc 53 mg/dL (-129) 12/09/22 05:27 VLDL Cholesterol 10 mg/dL 12/09/22 05:27 HDL Cholesterol 74 mg/dL (60-) 12/09/22 05:27 LDL/HDL Ratio 0.7 (<4.4) 12/09/22 05:27 Cholesterol/HDL Ratio 1.9 (<4.4) 12/09/22 05:27 Lipase 70 U/L (22-51) H 12/08/22 08:50
--- NOTE | 2022-12-09 14:12 | Discharge Plan ---
Discharge Plan Problem Reviewed?: Yes Disposition: Home, Self Care Condition: Fair Prescriptions: Propranolol HCl 10 mg PO DAILY #15 tab Diet: Regular Activity Restrictions: Activity as Tolerated Shower Restrictions: No Driving Restrictions: No Health Concerns: You were hospitalized to evaluate dizziness and in the ER the concern was that y ou had abnormal speech and therefore you possibly had a TIA. The CT scan of your brain showed no stroke. Today we had MRI available and an MRI of your brain also showed no stroke. It does show extensive brain changes of aging. So you did not even have a TIA currently. I think there are 2 separate issues: Your speech is not normal, it is slow but this is not a new finding since your speech did not change during the 2 days that you were here. You do need an evaluation by a Speech Therapist and possibly by an Occupational Therapist which should be done as an outpatient. Separate from that, you had dizziness which I found is related to your propranolol (blue pill) medication being excessive. We found your heart rate to be too slow on this blue pill. Therefore starting today, you should just take half of a blue pill only in the morning, no second dose during the day. All your other medications may remain the same. Please write out a new updated accurate list of all the medicines you take, including the baby aspirin and any vitamins, and keep this in your wallet. Plan of Treatment: As above. Care Goals: Improvement in symptoms and stabilization are the goals. Assessment: The patient and 2 daughters understand and are agreeable with the plan. No Smoking: If you smoke, Please STOP! Call for help. Follow-up with: Autumn Vizcaino ARNP [Primary Care Provider] -
--- NOTE | 2022-12-09 14:14 | DISCHARGE SUMMARY ---
Discharge Summary Admit Date: 12/08/22 Primary Care Provider: ZARHAA Vizcaino Code Status: Do Not Attempt Resuscitation Condition at Discharge: Fair Discharge Disposition: 01 Home, Self Care - HPI History of Present Illness: This is an 87-year-old female who lives alone, her several years ago, with a history of TIA 3 years ago for which she is on baby aspirin daily. Yesterday she was active, mowed the lawn on a rifing mower, and did her usual in-home aerobics, went to bed at 10 PM. She awoke feeling dizzy as if she was falling and had dysarthria and word finding difficulty. She called an ambulance. She presented to the ER and still had the symptoms. A head CT and CTA head and neck were negative, which were unremarkable except for atrophy consistent with her age. She had a telestroke consultation done and the Neurologist felt that because of her advanced age, mild symptoms and unknown onset of symptoms, no tPA was indicated. Neurologist recommended she be placed in Observation and have evaluation and treatment. I discussed her CODE BLUE wishes with her and, she first answered that she has never thought about it. Then she and I discussed how her had and that he wanted a natural and she was the one to make that decision, which I now asked her to make for herself. She quickly stated she wanted nature to let its course "since she is 87", therefore she will be a DNR/DNI. - ALLERGIES Allergies/Adverse Reactions: Allergies Allergy/AdvReac Type Severity Reaction Status Date / Time No Known Drug Allergies Allergy Verified 02/28/22 15:56 - MEDICATIONS Home Medications: Ambulatory Orders Medication Instructions Recorded Confirmed Aspirin 81 mg PO DAILY 09/08/19 12/08/22 Multivitamin [Multiple Vitamins] 1 tab PO DAILY 09/08/19 12/08/22 Atorvastatin [Lipitor] 10 mg PO QPM 12/08/22 12/09/22 Famotidine [Acid-Pep] 20 mg PO BID 12/08/22 12/09/22 Propranolol HCl 10 mg PO DAILY #15 tab 12/09/22 - PHYSICAL EXAM AT DISCHARGE General Appearance: positive: No acute distress, Alert Eyes Bilateral: positive: Normal inspection, EOMI ENT: positive: ENT inspection nml, No signs of dehydration Neck: positive: Nml inspection, No JVD Respiratory: positive: No respiratory distress, Breath sounds nml Cardiovascular: positive: Regular rate & rhythm, No murmur Abdomen: positive: Non-tender, Nml bowel sounds, No distention Back: positive: Nml inspection Skin: positive: No rash, Warm Extremities: positive: Non-tender, No pedal edema Neurologic/Psychiatric: positive: Oriented x3, Other (Occasionally has a poor memory. Has extremely slow and deliberate speech and rarely had trouble finding words) - LABS Result Diagrams: 12/08/22 08:50 12/08/22 08:50
--- NOTE | 2022-12-09 15:35 | PROVIDER PROGRESS NOTE ---
Assessment/Plan - Problem List (1) Dizziness Assessment/Plan: In reviewing her chart and EMR, she had TIA W/U 3 years ago and takes a baby aspirin daily. There is no Echo on record done here. Carotid US then showed < 50% stenoses. Patient presented yesterday w/ dizzines, "feeling like she would fall" and had a telestroke evaluation done in our ER after the CT result came back negative. The Neurologist recommended that because of her advanced age, mild symptoms and unknown onset, not to use tPA After admission, she already had no dizziness, when I met her, but she has very abnormal slow speech and did complain, in the ED and to me, of word finding difficulty. Telemetry has showed no A-fib. Neurochecks showed no changes. Today she had a brain MRI that showed diffuse ischemic changes consistent with age, but no evidence of an old stroke or an acute stroke. PT saw her today and said she did great. The patient does aerobics in her home daily, drives and rides a driving mower to cut her own grass, so PT eval was expected to be good. Since there was no sign of stroke on MRI, and her dizziness had resolved, she was about to be discharged, and I felt she did not need the Echocardiogram and I was recommending Speech Therapy eval and OT eval as an outpatient. Then she fell in her room. Her discharge was canceled. Plan: Continue to monitor on telemetry to watch for A-fib Neurochecks every 4 hours Orthostatic vital sign checks qshift ordered Continue aspirin daily Await Echo with bubble study (today is Fridayand we have no scada technician here until Friday). Await OT and Speech/linguistics evals (we have no OT on the schedule to see Inpatients until tomorrow). (2) Fall during hospitalization Patient was seen and results of tests and discharge instructions were reviewed this morning with the patient and daughter in the room. Later she stood up from her bed and leaned down to get something on the floor, and continued to fall forward and fell on her head and then rolled over and sideways, and landed on her shoulder then back. The daughter in the room witnessed it. The RN updated me about this. I examined the patient who was already in her bed, and she had no pain and was moving all extremities spontaneously. I canceled today's discharge. Plan: Apply c-collar STAT head CT and C-spine CT ordered I will order orthostatic vital sign checks every shift (3) Bradycardia This patient's heart rate dropped to 39-45 overnight when she was asleep, this is on a dose of Propranolol half tablet of 20 mg, so 10 mg twice a day. I jefferson spected that her dizziness at admission, was caused by excessive bradycardia. Plan: Propranolol will be decreased to 10 mg just every a.m. This had already been explained to the patient and daughter in the room, since it was the plan for after discharge (4) Garbled speech When I met her, she had very abnormal, slow speech and did complain, of word finding difficulty. She claimed that she has had this kind of speech for years. As I examined her today I noticed the same very slow speech Today with the daughter present I asked the daughter if this is how her mother always speaks, and she said Yes Plan: Await OT and Speech/linguistics evals (we have no OT on the schedule to see Inpatients until tomorrow). 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 I only learned of this history when the daughter came in today. In addition, her resting EKG shows sinus rhythm with first-degree AV block. She does not have a short ME interval or delta waves that are present in WPW. I suspect that degenerative changes of aging may have caused conduction system disease and degeneration even of her WPW bypass tract, producing this EKG that we see now, which has no evidence of WPW currently. The patient reported that she felt agitated and "not right" when was taken off the Propranolol about 2 years ago, and daughter thinks it was stopped due to low BP. Then the 1/2 tab BID was resumed. Plan: The current Propranolol 10 mg BID dosing is making her excessively bradycardic, therefore I explained to pt and daughter that she should just take the morning Propranolol dose. I will also adjust that while she is here. (She does not know her medication names or strengths but says she takes "half a tablet of a blue pill" twice a day. I contacted her other daughter who prepares her medications by phone today, and we had a conference call in her room, and confirmed that the blue pill is the Propranolol). (6) Hyperlipidemia The patient takes Atorvastatin. Her fasting lipid panel came back with excellent results (all labs were reviewed) LDL 53, Trigl 50. Plan: No change in Atorvastatin was advised. - Current Meds Current Meds: Current Medications Generic Name Dose Route Start Last Admin Trade Name Michael PRN Reason Stop Dose Admin Aspirin 81 mg 12/09/22 09:00 12/09/22 09:05 Aspirin Chew 81 Mg Tablet PO 81 mg DAILY ASPEN Administration Atorvastatin Calcium 10 mg 12/08/22 21:00 12/08/22 20:04 Atorvastatin 10 Mg Tablet PO 10 mg QPM ASPEN Administration Calcium Carbonate/Glycine 500 mg 12/09/22 09:00 12/09/22 09:05 Calcium Carb (Oyster Shell) 500 Mg Tablet PO 500 mg DAILY ASPEN Administration Famotidine 20 mg 12/09/22 09:00 12/09/22 09:05 Famotidine 20 Mg Tablet PO 20 mg DAILY ASPEN Administration Multivitamins 1 tab 12/09/22 08:00 12/09/22 09:05 Multivitamin Tablet PO 1 tab DAILYWM ASPEN Administration Sodium Chloride 10 ml 12/08/22 17:00 12/09/22 09:05 Sodium Chloride Flush 0.9% 10 Ml Syringe IVP 10 ml 0100,0900,1700 ASPEN Administration - Lab Result Fish Bone Diagrams: 12/08/22 08:50 12/08/22 08:50 - Additional Planning My Orders: My Active Orders 12/08/22 17:00 Sodium Chloride Flush 0.9% [Normal Saline Flush 0.9%] 10 ml IVP 0100,0900,1700 12/08/22 21:00 Atorvastatin [Lipitor] 10 mg PO QPM 12/09/22 08:00 Multivitamin [Theragran] 1 tab PO DAILYWM 12/09/22 09:00 Aspirin Chewable [[place] Aspirin] 81 mg PO DAILY Calcium Carb (Oyster Shell) [Oysco-500] 500 mg PO DAILY Famotidine [Pepcid] 20 mg PO DAILY 12/09/22 15:03 Brain [HEAD WO] [CT] Stat CERVICAL SPINE WO [CT] Stat 12/09/22 15:04 ED C-Collar Application ONCE 12/09/22 15:12 Orthostatic [Vital Signs - Orthostatic] [RC] QSHIFT 12/10/22 07:00 Echo Complete w/Bubble Study [ECHO] Routine 12/10/22 09:00 Propranolol [Inderal] 10 mg PO DAILY Subjective - Subjective Patient Reports: Feeling Better, No Complaints Objective Vital Signs: Vital Signs - 24 hr 12/08/22 12/08/22 12/09/22 15:48 20:12 01:36 Temperature 36.6 C 36.4 C L 36.6 C Heart Rate [ 49 L 57 L 62 Brachial] Heart Rate [ Sitting] Heart Rate [ Supine] Respiratory 16 20 20 Rate Blood Pressure 142/53 H 120/58 L 132/76 H [Right Brachial artery] Blood Pressure [Sitting] Blood Pressure [Supine] O2 Saturation 97 96 97 12/09/22 12/09/22 12/09/22 08:26 12:37 13:05 Temperature 36.5 C 36.9 C Heart Rate [ 54 L 58 L Brachial] Heart Rate [ 59 L Sitting] Heart Rate [ 53 L Supine] Respiratory 18 18 Rate Blood Pressure 136/53 H 151/68 H [Right Brachial artery] Blood Pressure 115/87 H [Sitting] Blood Pressure 139/58 H [Supine] O2 Saturation 95 98 Oxygen O2 Source Room air I&O (Last 24 Hrs): Intake and Output Totals x24h 12/07/22 12/08/22 12/09/22 23:59 23:59 23:59 Intake Total 1758 960 Balance 1758 960 General: Alert, Oriented x3 HEENT: Mucous membr. moist/pink Neck: Supple, No JVD Neuro: Alert, Non Focal, Other (Very slow speech, without a tremor) Cardiovascular: Regular rate, No murmurs Respiratory: No respiratory distress, Breath sounds nml Abdomen: Normal bowel sounds, Soft, No tenderness Extremities: No clubbing, No edema - Results Results: Laboratory Results WBC 4.8 x10^3/uL (4.8-10.8) 12/08/22 08:50 RBC 4.06 10^6/uL (4.20-5.40) L 12/08/22 08:50 Hgb 12.7 g/dL (12.0-16.0) 12/08/22 08:50 Hct 38.3 % (37.0-47.0) 12/08/22 08:50 MCV 94.3 fL (81.0-99.0) 12/08/22 08:50 MCH 31.3 pg (27.0-31.0) H 12/08/22 08:50 MCHC 33.2 g/dL (32.0-36.0) 12/08/22 08:50 RDW 11.9 % (12.0-15.0) L 12/08/22 08:50 Plt Count 173 10^3/uL (130-450) 12/08/22 08:50 MPV 10.3 fL (7.9-10.8) 12/08/22 08:50 Neut # (Auto) 3.0 10^3/uL (1.5-6.6) 12/08/22 08:50 Lymph # (Auto) 1.2 10^3/uL (1.5-3.5) L 12/08/22 08:50 [place] # (Auto) 0.4 10^3/uL (0.0-1.0) 12/08/22 08:50 Eos # (Auto) 0.1 10^3/uL (0.0-0.7) 12/08/22 08:50 Baso # (Auto) 0.1 10^3/uL (0.0-0.1) 12/08/22 08:50 Absolute Nucleated RBC 0.00 x10^3/uL 12/08/22 08:50 Nucleated RBC % 0.0 /100WBC 12/08/22 08:50 PT 11.6 secs (9.9-12.6) 12/08/22 08:50 INR 1.0 (0.8-1.2) 12/08/22 08:50 Sodium 137 mmol/L (135-145) 12/08/22 08:50 Potassium 3.7 mmol/L (3.5-5.0) 12/08/22 08:50 Chloride 102 mmol/L (101-111) 12/08/22 08:50 Carbon Dioxide 29 mmol/L (21-32) 12/08/22 08:50 Anion Gap 6.0 (6-13) 12/08/22 08:50 BUN 14 mg/dL (6-20) 12/08/22 08:50 Creatinine 0.7 mg/dL (0.4-1.0) 12/08/22 08:50 Estimated GFR (MDRD) 79 (>89) L 12/08/22 08:50 Glucose 103 mg/dL (70-100) H 12/08/22 08:50 Calcium 9.0 mg/dL (8.5-10.3) 12/08/22 08:50 Total Bilirubin 1.7 mg/dL (0.2-1.0) H 12/08/22 08:50 AST 29 IU/L (10-42) 12/08/22 08:50 ALT 20 IU/L (10-60) 12/08/22 08:50 Alkaline Phosphatase 74 IU/L (42-121) 12/08/22 08:50 Total Protein 7.2 g/dL (6.7-8.2) 12/08/22 08:50 Albumin 4.1 g/dL (3.2-5.5) 12/08/22 08:50 Globulin 3.1 g/dL (2.1-4.2) 12/08/22 08:50 Albumin/Globulin Ratio 1.3 (1.0-2.2) 12/08/22 08:50 Triglycerides 50 mg/dL (-149) 12/09/22 05:27 Cholesterol 137 mg/dL (-199) 12/09/22 05:27 LDL Cholesterol, Calc 53 mg/dL (-129) 12/09/22 05:27 VLDL Cholesterol 10 mg/dL 12/09/22 05:27 HDL Cholesterol 74 mg/dL (60-) 12/09/22 05:27 LDL/HDL Ratio 0.7 (<4.4) 12/09/22 05:27 Cholesterol/HDL Ratio 1.9 (<4.4) 12/09/22 05:27 Lipase 70 U/L (22-51) H 12/08/22 08:50
--- NOTE | 2022-12-09 15:41 | CT Report ---
PROCEDURE: HEAD WO INDICATIONS: Fall in hosp today TECHNIQUE: Noncontrast 4.5 mm thick angled axial sections acquired from the foramen magnum to the vertex. For r adiation dose reduction, the following was used: automated exposure control, adjustment of mA and/or kV according to patient size. COMPARISON: 12/08/2022. FINDINGS: Image quality: Excellent. CSF spaces: Basal cisterns are patent. No extra-axial fluid collections. Ventricles are normal in size and shape. Brain: No midline shift. No intracranial masses or hemorrhage. Romero-white matter interface is norm al. Age-related volume loss. Moderate to severe small vessel ischemic change. Skull and face: Calvarium and visualized facial bones are intact, without suspicious lesions. Sinuses: Visualized sinuses and mastoids are clear. IMPRESSION: 1. Age-related loss and moderate to severe small vessel ischemic change. 2. No acute intracranial process. Reviewed by: Raghavendra Brewster MD on 12/09/2022 3:40 PM PDT Approved by: Raghavendra Brewster MD on 12/09/2022 3:40 PM PDT Station ID: [id number]
--- NOTE | 2022-12-09 15:46 | CT Report ---
PROCEDURE: CERVICAL SPINE WO INDICATIONS: Fall in hosp TECHNIQUE: Noncontrast 3 mm thick sections acquired from the skull base to the T4 level. Sagittal and coronal r eformats were then constructed. For radiation dose reduction, the following was used: automated exp osure control, adjustment of mA and/or kV according to patient size. COMPARISON: CT angiogram of the neck from yesterday. FINDINGS: Image quality: Excellent. Bones: No fractures or dislocations. Visualized superior ribs are intact. Cervical spondylitic mahan ge. Reversal of normal lordotic curve. Trace anterolisthesis of C4 on C5. Disc osteophyte complex at C5-C6 results in moderate canal stenosis. There is a moderately large right paracentral disc protrusi on at C3-C4 which indents on the ventral cord. This was present on the previous study, not an acute f inding. Reference previous image 169/2. There is multilevel bony foraminal narrowing. Soft tissues: Prevertebral soft tissues are normal in thickness. No paravertebral hematomas. No ap ical pneumothoraces. IMPRESSION: 1. No evidence of acute cervical fracture or dislocation. 2. Cervical spondylitic change. Findings include a moderately large right paracentral disc protrusion at C3-C4 which was present prior to today's fall, as well as canal stenosis at C5-C6. Reviewed by: Raghavendra Brewster MD on 12/09/2022 3:45 PM PDT Approved by: Raghavendra Brewster MD on 12/09/2022 3:45 PM PDT Station ID: [id number]
[2022-12-09] MEDS: SODIUM CHLORIDE 0.9% 1,000 ML IV SCH (18:14)
[2022-12-09] MEDS: ATORVASTATIN 10 MG TABLET PO SCH (21:14)
[2022-12-10] MEDS: SODIUM CHLORIDE FLUSH 0.9% 10 ML SYRINGE IVP SCH ×2 (04:50→09:28)
[2022-12-10] MEDS: SODIUM CHLORIDE 0.9% 1,000 ML IV SCH (06:03)
[2022-12-10] MEDS ORDERED: PROPRANOLOL 10 MG TABLET PO SCH (09:00)
[2022-12-10] MEDS: ASPIRIN CHEW 81 MG TABLET PO SCH (09:27)
[2022-12-10] MEDS: CALCIUM CARB (OYSTER SHELL) 500 MG TABLET PO SCH (09:27)
[2022-12-10] MEDS: MULTIVITAMIN TABLET PO SCH (09:27)
[2022-12-10] MEDS: FAMOTIDINE 20 MG TABLET PO SCH (09:27)
--- NOTE | 2022-12-10 14:57 | Discharge Plan ---
Discharge Plan Problem Reviewed?: Yes Disposition: Home, Self Care Condition: Stable Prescriptions: Propranolol HCl 10 mg PO DAILY #15 tab Activity Restrictions: Activity as Tolerated Shower Restrictions: No Driving Restrictions: No Health Concerns: You were hospitalized to evaluate dizziness and in the ER the concern was that you had abnormal speech and therefore you possibly had a TIA. The CT scan of your brain showed no stroke. Today we had MRI available and an MRI of your brain also showed no stroke. It does show extensive brain changes of aging. So you did not even have a TIA currently. I think there are 2 separate issues: Your speech is not normal, it is slow but this is not a new finding since your speech did not change during the 2 days that you were here. You do need an evaluation by a Speech Therapist and possibly by an Occupational Therapist which should be done as an outpatient. Separate from that, you had dizziness which I found is related to your propranolol (blue pill) medication being excessive. We found your heart rate to be too slow on this blue pill. Therefore starting today, you should just take half of a blue pill only in the morning, no second dose during the day. All your other medications may remain the same. Please write out a new updated accurate list of all the medicines you take, including the baby aspirin and any vitamins, and keep this in your wallet. Plan of Treatment: As above. Care Goals: Improvement in symptoms and stabilization are the goals. Assessment: The patient and 2 daughters understand and are agreeable with the plan. No Smoking: If you smoke, Please STOP! Call for help. Follow-up with: Autumn Vizcaino ARNP [Primary Care Provider] -
[2022-12-10 16:05] VITALS: BP 155/75
--- NOTE | 2022-12-11 17:15 | DISCHARGE SUMMARY ---
"Discharge Summary Admit Date: 12/08/22 Discharge Date: 12/10/22 Discharging Provider: Dr Arnold Condition at Discharge: Stable Discharge Disposition: 01 Home, Self Care - DIAGNOSES Admission Diagnoses: Dizziness Discharge Diagnoses with Status of Each Condition: Dizziness-resolved with negative echo with bubble study test OT and PT and speech consulted also Fall during hospitalization CT of head and C-spine were ordered with no concerning findings Bradycardia-patient's heart rate dropped to 39-45 while asleep her propranolol was cut in half to 10 mg twice a day Garbled speech-apparently per daughter not acute History of WPW-avoid excessive bradycardia and dose of propranolol decreased Hyperlipidemia-continue with atorvastatin - HPI History of Present Illness: Patient presented to the emergency room with feeling lightheaded and dizzy. She has a history of a TIA with work-up 3 years prior. Patient had a telestroke evaluation done in the ER on presentation and the CT result came back negative. The neurologist recommended that because of her advanced age mild symptoms and unknown onset not to use tPA. She had no further episodes of dizziness except one the day before discharge when she was bending over. MRI was done which revealed no acute findings. - CONSULTS | PROCEDURES Consultations: Telemetry neurology - HOSPITAL COURSE Hospital Course: Please see HPI for details. Patient had no clear etiology for dizziness which presented with she had 1 episode while bending over here in the hospital and that have resolved had no further episodes with negative work-up. - ALLERGIES Allergies/Adverse Reactions: Allergies Allergy/AdvReac Type Severity Reaction Status Date / Time No Known Drug Allergies Allergy Verified 02/28/22 15:56 - MEDICATIONS Home Medications: Ambulatory Orders Medication Instructions Recorded Confirmed Aspirin 81 mg PO DAILY 09/08/19 12/08/22 Multivitamin [Multiple Vitamins] 1 tab PO DAILY 09/08/19 12/08/22 Atorvastatin [Lipitor] 10 mg PO QPM 12/08/22 12/09/22 Famotidine [Acid-Pep] 20 mg PO BID 12/08/22 12/09/22 Propranolol HCl 10 mg PO DAILY #15 tab 12/09/22 - PHYSICAL EXAM AT DISCHARGE General Appearance: positive: No acute distress, Alert Eyes Bilateral: positive: Normal inspection Neck: positive: Nml inspection Respiratory: positive: Breath sounds nml Cardiovascular: positive: Regular rate & rhythm, No murmur Extremities: positive: Non-tender, No pedal edema Neurologic/Psychiatric: positive: Oriented x3 - LABS Result Diagrams: 12/08/22 08:50 12/08/22 08:50 - TIME SPENT Time Spent in Discharge (Minutes): 25"
== END 2022-12-10 16:10 | disposition home or self-care (01) ==
LOC: EDUNIT# → ED 08:21 → MS2 10:22
PROVIDERS: ADMIT Internal Medicine; ATTEND Specialist
DX: R00.1 Bradycardia, unspecified (principal); R42 Dizziness and giddiness; T44.7X5A Adverse effect of beta-adrenoreceptor antagonists, initial encounter; R47.1 Dysarthria and anarthria; Y92.230 Patient room in hospital as the place of occurrence of the external cause; W18.39XA Other fall on same level, initial encounter; Z86.79 Personal history of other diseases of the circulatory system; Z79.82 Long term (current) use of aspirin; E78.5 Hyperlipidemia, unspecified; Z66 Do not resuscitate; Z86.73 Personal history of transient ischemic attack (TIA), and cerebral infarction without residual deficits
CPT/HCPCS: 36415; 70450; 70496; 70498; 70551; 72125; 80053; 80061; 83690; 85025; 85610; 92523; 93005; 93306; 97161; 99284; 99285; A9270; G0378; Q9967; 83721

== ENCOUNTER 2023-03-19 12:30 | Outpatient (CLI) | payer MEDICARE | END 2023-03-19 12:31 | disposition EMS.NT | LOC: EMS 12:30 | DX: R04.0 Epistaxis (principal) ==